=== PATIENT | female | born 1985 | race Caucasian/White ===

== ENCOUNTER 2018-04-11 18:24 | Emergency (ER) | payer OTHER ==
[~2018-04-11] VITALS: Ht 152.4 cm; Wt 97.7 kg
[2018-04-11 18:33] VITALS: BP 186/91; TEMP 98.8
[2018-04-11] MEDS ORDERED: CYMBALTA 60MG60 MG PO (19:07)
[2018-04-11] MEDS ORDERED: CELEBREX 1100 MG/CAP PO (19:07)
[2018-04-11] MEDS ORDERED: LIORESAL20 MG PO (19:07)
[2018-04-11] MEDS ORDERED: LYRICA 75MG CAP75 MG PO (19:08)
[2018-04-11] MEDS ORDERED: ZANTAC 7575 MG PO (19:08)
[2018-04-11] MEDS ORDERED: ZOFRAN ODT8 MG PO (19:08)
[2018-04-11] MEDS ORDERED: TOPAMAX 100MG100 M1 PO (19:08)
[2018-04-11] MEDS ORDERED: IMITREX100 MG PO (19:08)
[2018-04-11 19:29] LABS: BASO # 0.1 (0.0-0.2); BASO % 0.8 % (0.0-2.0); EOS # 0.2 (0.0-0.7); EOS % 1.7 % (0-4.0); GRAN # 6.3 (1.4-6.5); GRAN % 64.8 % (42.2-75.2); HEMATOCRIT 41.8 % (37.0-47.0); HEMOGLOBIN 14.1 g/dl (12.5-16.0); LYMPH # 2.5 (1.2-3.4); LYMPH % 26.2 % (20.0-51.0); MEAN CELL VOLUME 93 fl (80.0-100.0); MEAN CORPUSCULAR HEMOGLOBIN 31 pg (27.0-31.0); MEAN CORPUSCULAR HGB CONC 34 g/dl (33.0-37.0); MONO # 0.6 (0.1-0.6); MONO % 6.1 % (1.7-9.3); PLATELET COUNT 214 K/mm3 (130-400); RED BLOOD COUNT 4.52 M/mm3 (4.10-5.30); REDCELL DISTRIBUTION WIDTH-CV 12.7 % (11.5-14.5)
[2018-04-11 19:44] LABS: ALBUMIN 4.1 gm/dL (3.5-5.0); BILIRUBIN,TOTAL 0.6 mg/dL (0.0-1.0); C-REACTIVE PROTEIN 0.8 mg/dL (0.0-0.9); CALCIUM 9.3 mg/dL (8.4-10.2); CREATININE, serum 0.92 mg/dL (0.52-1.25); POTASSIUM 3.8 mmol/L (3.4-5.0); TOTAL PROTEIN 7.8 gm/dL (6.4-8.2)
[2018-04-11 19:58] LABS: PROLACTIN 12.2 ng/mL (3.0-18.6)
[2018-04-11] MEDS ORDERED: ATIVAN 0.50.5 MG/TAB PO (20:42)
[2018-04-11 21:01] VITALS: PULSE 87
== END 2018-04-11 21:01 | disposition home or self-care (01) ==
LOC: COL.ER 18:24
PROVIDERS: Emergency Medicine
DX: R56.9 Unspecified convulsions (principal); G43.909 Migraine, unspecified, not intractable, without status migrainosus; F17.210 Nicotine dependence, cigarettes, uncomplicated
CPT/HCPCS: J1170; J1885; J2060

== ENCOUNTER 2018-04-29 20:51 | Emergency (ER) | payer OTHER ==
[~2018-04-29] VITALS: Ht 165.1 cm; Wt 97.7 kg
[~2018-04-29 20:51] MED LIST: ATIVAN 0.50.5 MG/TAB PO; CELEBREX 1100 MG/CAP PO; CYMBALTA 60MG60 MG PO; IMITREX100 MG PO; LIORESAL20 MG PO; LYRICA 75MG CAP75 MG PO; TOPAMAX 100MG100 M1 PO; ZANTAC 7575 MG PO; ZOFRAN ODT8 MG PO
[2018-04-29 20:53] VITALS: TEMP 98.3
[2018-04-29 21:28] LABS: COLLECTION METHOD CLEAN CATCH
[2018-04-29 21:33] LABS: BASO # 0.1 (0.0-0.2); BASO % 0.5 % (0.0-2.0); EOS # 0.3 (0.0-0.7); EOS % 2.2 % (0-4.0); GRAN # 7.7 (1.4-6.5); GRAN % 62.3 % (42.2-75.2); HEMATOCRIT 41.3 % (37.0-47.0); HEMOGLOBIN 13.9 g/dl (12.5-16.0); LYMPH # 3.4 (1.2-3.4); LYMPH % 27.5 % (20.0-51.0); MEAN CELL VOLUME 92 fl (80.0-100.0); MEAN CORPUSCULAR HEMOGLOBIN 31 pg (27.0-31.0); MEAN CORPUSCULAR HGB CONC 34 g/dl (33.0-37.0); MEAN PLATELET VOLUME 11.1 fl (7.4-10.4); MONO # 0.9 (0.1-0.6); PLATELET COUNT 233 K/mm3 (130-400)
[2018-04-29 21:36] LABS: AMORPHOUS CRYSTAL Present /uL; MUCOUS Present /lpf; PH 7 (5-8); URINE APPEARANCE Clear; URINE BACTERIA Rare /hpf; URINE BILIRUBIN Negative (NEGATIVE); URINE BLOOD Negative (NEGATIVE); URINE COLOR Amber; URINE GLUCOSE Negative (NEGATIVE); URINE KETONE Negative (NEGATIVE); URINE LEUKOCYTE ESTERASE Trace (NEGATIVE); URINE NITRATE Negative (NEGATIVE); URINE PROTEIN(semi-quant) Negative (NEGATIVE)
[2018-04-29 21:51] LABS: ALBUMIN 4.2 gm/dL (3.5-5.0); BILIRUBIN,TOTAL 0.4 mg/dL (0.0-1.0); CALCIUM 9.4 mg/dL (8.4-10.2); CREATININE, serum 0.95 mg/dL (0.52-1.25); POTASSIUM 3.6 mmol/L (3.4-5.0); TOTAL PROTEIN 7.9 gm/dL (6.4-8.2)
[2018-04-29 22:07] LABS: PROLACTIN 18.1 ng/mL (3.0-18.6)
[2018-04-30 00:27] VITALS: BP 138/81; PULSE 85
== END 2018-04-30 00:30 | disposition short-term general hospital (02) ==
LOC: COL.ER 20:51
PROVIDERS: Emergency Medicine
DX: R56.9 Unspecified convulsions (principal); R29.898 Other symptoms and signs involving the musculoskeletal system; F41.9 Anxiety disorder, unspecified; F31.9 Bipolar disorder, unspecified; F17.210 Nicotine dependence, cigarettes, uncomplicated
CPT/HCPCS: J1953; J3010

== ENCOUNTER → 2018-09-08 | Outpatient (CLI) | payer OTHER | LOC: MC.RAD 10:30 | DX: N63.41 Unspecified lump in right breast, subareolar (principal) ==

== ENCOUNTER → 2018-09-15 | Outpatient (CLI) | payer OTHER | LOC: MC.RAD 09:49 | DX: N63.10 Unspecified lump in the right breast, unspecified quadrant (principal); Z98.82 Breast implant status ==

== ENCOUNTER 2019-03-29 12:48 | Emergency (ER) | payer OTHER ==
[~2019-03-29] VITALS: Ht 152.4 cm; Wt 100.0 kg
[2019-03-29 13:08] VITALS: BP 139/83; TEMP 97.7
[2019-03-29 19:04] LABS: BASO # 0.1 (0.0-0.2); BASO % 0.5 % (0.0-2.0); EOS # 0.3 (0.0-0.7); EOS % 2.5 % (0-4.0); GRAN # 6.5 (1.4-6.5); GRAN % 59.4 % (42.2-75.2); HEMATOCRIT 47.3 % (37.0-47.0); HEMOGLOBIN 15.5 g/dl (12.5-16.0); LYMPH # 3.3 (1.2-3.4); LYMPH % 30.3 % (20.0-51.0); MEAN CELL VOLUME 95 fl (80.0-100.0); MEAN CORPUSCULAR HEMOGLOBIN 31 pg (27.0-31.0); MEAN CORPUSCULAR HGB CONC 33 g/dl (33.0-37.0); MEAN PLATELET VOLUME 10.9 fl (7.4-10.4); MONO # 0.7 (0.1-0.6); MONO % 6.6 % (1.7-9.3); PLATELET COUNT 260 K/mm3 (130-400); RED BLOOD COUNT 4.98 M/mm3 (4.10-5.30); REDCELL DISTRIBUTION WIDTH-CV 12.7 % (11.5-14.5)
[2019-03-29 19:23] LABS: ALBUMIN 4.3 gm/dL (3.5-5.0); BILIRUBIN,TOTAL 0.9 mg/dL (0.0-1.0); C-REACTIVE PROTEIN 0.9 mg/dL (0.0-0.9); CALCIUM 9.5 mg/dL (8.4-10.2); CREATININE, serum 0.81 (0.52-1.25); TOTAL PROTEIN 8.4 gm/dL (6.4-8.2)
[2019-03-29] MEDS ORDERED: PRILOSEC 20MG20 MG PO (19:50)
[2019-03-29] MEDS ORDERED: CARAFATE 1GM1 G PO (19:50)
[2019-03-29 19:57] LABS: COLLECTION METHOD CLEAN CATCH
[2019-03-29 20:02] LABS: MUCOUS Present /lpf; PH 5 (5-8); URINE APPEARANCE Hazy; URINE BACTERIA None Seen /hpf; URINE BILIRUBIN Negative (NEGATIVE); URINE BLOOD Negative (NEGATIVE); URINE COLOR Yellow; URINE GLUCOSE Negative (NEGATIVE); URINE KETONE Negative (NEGATIVE); URINE LEUKOCYTE ESTERASE Negative (NEGATIVE); URINE NITRATE Negative (NEGATIVE); URINE PROTEIN(semi-quant) Negative (NEGATIVE); URINE RBC 0-2 /hpf; URINE UROBILINOGEN Negative (NEGATIVE)
[2019-03-29 20:35] VITALS: PULSE 56
== END 2019-03-29 20:35 | disposition home or self-care (01) ==
LOC: COL.ER 12:48
PROVIDERS: Nurse Practitioner
DX: R10.13 Epigastric pain (principal); K21.9 Gastro-esophageal reflux disease without esophagitis; F17.210 Nicotine dependence, cigarettes, uncomplicated; Z88.1 Allergy status to other antibiotic agents
CPT/HCPCS: J2405; J7030

== ENCOUNTER 2021-02-26 11:05 | Emergency (ER) | payer SELFPAY ==
[~2021-02-26] VITALS: Ht 162.6 cm; Wt 75.0 kg
[~2021-02-26 11:05] MED LIST changes: +CARAFATE 1GM1 G PO; +PRILOSEC 20MG20 MG PO
[2021-02-26 11:30] VITALS: TEMP 98.1
[2021-02-26 11:42] LABS: BASO % 0.2 % (0.0-2.0); EOS # 0.2 (0.0-0.7); EOS % 1.8 % (0-4.0); GRAN # 7.8 (1.4-6.5); GRAN % 73.4 % (42.2-75.2); HEMATOCRIT 42.1 % (37.0-47.0); HEMOGLOBIN 14.5 g/dl (12.5-16.0); LYMPH # 1.7 (1.2-3.4); MEAN CELL VOLUME 89 fl (80.0-100.0); MEAN CORPUSCULAR HEMOGLOBIN 31 pg (27.0-31.0); MEAN CORPUSCULAR HGB CONC 34 g/dl (33.0-37.0); MEAN PLATELET VOLUME 11.6 fl (7.4-10.4); MONO # 0.9 (0.1-0.6); PLATELET COUNT 221 K/mm3 (130-400); RED BLOOD COUNT 4.71 M/mm3 (4.10-5.30); REDCELL DISTRIBUTION WIDTH-CV 11.9 % (11.5-14.5)
[2021-02-26 12:10] LABS: COLLECTION METHOD CLEAN CATCH
[2021-02-26 12:34] LABS: MUCOUS Present /lpf; PH 6 (5-8); URINE APPEARANCE Cloudy; URINE BACTERIA Rare /hpf; URINE BILIRUBIN Negative (NEGATIVE); URINE BLOOD 2+ (NEGATIVE); URINE COLOR Amber; URINE GLUCOSE Negative (NEGATIVE); URINE KETONE 2+ (NEGATIVE); URINE LEUKOCYTE ESTERASE 1+ (NEGATIVE); URINE NITRATE Negative (NEGATIVE); URINE PROTEIN(semi-quant) 2+ (NEGATIVE)
[2021-02-26 12:49] LABS: ALBUMIN 4.5 gm/dL (3.5-5.0); CALCIUM 9.9 mg/dL (8.4-10.2); CREATININE, serum 0.77 (0.52-1.25); POTASSIUM 3.5 mmol/L (3.4-5.0); TOTAL PROTEIN 9.2 gm/dL (6.4-8.2)
[2021-02-26] MEDS ORDERED: ZOFRAN ODT4 MG PO (13:28)
[2021-02-26 14:05] VITALS: BP 1126/70; PULSE 71
[2021-05-24] MEDS ORDERED: LAMICTAL 100MG100 MG PO ×4 (13:10→13:12)
== END 2021-02-26 14:05 | disposition home or self-care (01) ==
LOC: COL.ER 11:05
PROVIDERS: Physician Assistant
DX: U07.1 COVID-19 (principal); E86.0 Dehydration; Z87.891 Personal history of nicotine dependence; Z32.02 Encounter for pregnancy test, result negative
CPT/HCPCS: J2405; J7030

== ENCOUNTER 2021-08-06 05:03 | Emergency (ER) | payer SELFPAY ==
[~2021-08-06] VITALS: Ht 152.4 cm; Wt 84.1 kg
[~2021-08-06 05:03] MED LIST changes: +LAMICTAL 100MG100 MG PO; +ZOFRAN ODT4 MG PO
[2021-08-06 05:13] VITALS: TEMP 98.1
[2021-08-06 05:50] LABS: BASO # 0.1 K/mm3 (0.0-0.2); BASO % 0.7 % (0.0-2.0); EOS # 0.2 K/mm3 (0.0-0.7); EOS % 2.5 % (0-4.0); GRAN # 5.3 K/mm3 (1.4-6.5); GRAN % 58.6 % (42.2-75.2); HEMATOCRIT 41.9 % (37.0-47.0); LYMPH # 2.7 K/mm3 (1.2-3.4); LYMPH % 29.6 % (20.0-51.0); MEAN CELL VOLUME 94 fl (80.0-100.0); MEAN CORPUSCULAR HEMOGLOBIN 31 pg (27.0-31.0); MEAN CORPUSCULAR HGB CONC 33 g/dl (33.0-37.0); MEAN PLATELET VOLUME 10.7 fl (7.4-10.4); MONO # 0.7 K/mm3 (0.1-0.6); PLATELET COUNT 249 K/mm3 (130-400); RED BLOOD COUNT 4.47 M/mm3 (4.10-5.30); REDCELL DISTRIBUTION WIDTH-CV 12.2 % (11.5-14.5)
[2021-08-06] MEDS ORDERED: LAMICTAL 100MG100 MG PO (05:54)
[2021-08-06 06:07] LABS: ALBUMIN 3.5 gm/dL (3.5-5.0); BILIRUBIN,TOTAL 0.6 mg/dL (0.2-1.2); CALCIUM 9.1 mg/dL (8.4-10.2); CREATININE, serum 0.86 mg/dL (0.57-1.11); POTASSIUM 3.9 mmol/L (3.5-4.5); TOTAL PROTEIN 7.6 gm/dL (6.2-8.1)
[2021-08-06 06:32] VITALS: BP 115/64; PULSE 80
--- NOTE | 2021-08-06 15:19 | NUR ---
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
== END 2021-08-06 06:30 | disposition home or self-care (01) ==
LOC: COL.ER 05:03
PROVIDERS: Emergency Medicine
DX: R25.1 Tremor, unspecified (principal)

== ENCOUNTER 2021-11-26 08:55 | Emergency (ER) | payer SELFPAY ==
[~2021-11-26] VITALS: Ht 152.4 cm; Wt 84.1 kg
[2021-11-26 09:02] VITALS: BP 127/79; PULSE 56; TEMP 98
[2021-11-26] MEDS ORDERED: NORCO 325 MG-51 TAB PO (09:17)
[2021-11-26] MEDS ORDERED: AMOXICILLIN 50500 MG PO (09:17)
== END 2021-11-26 09:29 | disposition home or self-care (01) ==
LOC: COL.ER 08:55
DX: K08.89 Other specified disorders of teeth and supporting structures (principal); Z88.1 Allergy status to other antibiotic agents

== ENCOUNTER 2021-12-14 09:52 | Emergency (ER) | payer SELFPAY ==
[~2021-12-14] VITALS: Ht 152.4 cm; Wt 84.1 kg
[~2021-12-14 09:52] MED LIST changes: +AMOXICILLIN 50500 MG PO; +NORCO 325 MG-51 TAB PO
[2021-12-14 10:01] VITALS: TEMP 98.4
[2021-12-14 12:16] VITALS: BP 132/79; PULSE 77
[2021-12-14] MEDS ORDERED: CRUTCHES MC (12:30)
== END 2021-12-14 12:16 | disposition home or self-care (01) ==
LOC: COL.ER 09:52
DX: S83.91XA Sprain of unspecified site of right knee, initial encounter (principal); Z96.651 Presence of right artificial knee joint; X50.1XXA Overexertion from prolonged static or awkward postures, initial encounter; Y92.59 Other trade areas as the place of occurrence of the external cause; Y99.0 Civilian activity done for income or pay
CPT/HCPCS: L1846

== ENCOUNTER → 2022-01-29 | Outpatient (CLI) | payer SELFPAY ==
[~2022-01-29] MED LIST changes: +CRUTCHES MC
== END ==
LOC: COL.RAD 01-23 09:45
DX: S89.91XD Unspecified injury of right lower leg, subsequent encounter (principal); X58.XXXD Exposure to other specified factors, subsequent encounter

== ENCOUNTER 2023-01-24 10:38 | Emergency (ER) | payer SELFPAY ==
[~2023-01-24] VITALS: Ht 152.4 cm; Wt 90.9 kg
[~2023-01-24 10:38] MED LIST changes: +REGLAN 10MG10 MG/TAB PO; +REGLAN 5MG T5 MG/TAB PO
[2023-01-24 10:47] VITALS: TEMP 98.3
[2023-01-24] MEDS ORDERED: PEN-VEE K500 MG PO (11:16)
[2023-01-24 11:34] VITALS: BP 145/83; PULSE 69
== END 2023-01-24 11:34 | disposition home or self-care (01) ==
LOC: COL.ER 10:38
DX: O99.891 Other specified diseases and conditions complicating pregnancy (principal); K08.89 Other specified disorders of teeth and supporting structures; O09.522 Supervision of elderly multigravida, second trimester; Z88.1 Allergy status to other antibiotic agents; Z3A.15 15 weeks gestation of pregnancy; Z28.310 Unvaccinated for COVID-19